=== PATIENT | male | born 1990 | race African-American/Black ===

== ENCOUNTER 2017-06-23 13:01 | Emergency (ER) | payer OTHER ==
[~2017-06-23] VITALS: Ht 177.8 cm; Wt 70.0 kg
[~2017-06-23 13:01] MED LIST: ACETTAB3 OR; ULTRAM50 M1 PO; no home meds
[2017-06-23 13:38] VITALS: BP 118/68
== END 2017-06-23 13:39 | disposition home or self-care (01) | DRG 556 ==
LOC: ED 13:01
DX: M79.672 Pain in left foot (principal); W20.8XXA Other cause of strike by thrown, projected or falling object, initial encounter; Y92.239 Unspecified place in hospital as the place of occurrence of the external cause; Y99.0 Civilian activity done for income or pay